=== PATIENT | male | born 1970 | race Caucasian/White ===

== ENCOUNTER → 2017-10-26 | Outpatient (CLI) | payer OTHER ==
[~2017-10-26] MED LIST: ASPIRIN325 PO; CELEBREX 200 M200 M1 PO; COZAAR 25 MG TA25 M1 PO; DOXYCYCLINE 10100 MG PO; ELIQUIS2.5 MG PO; NORVASC5 MG PO; OXYCODONE HCL 55 MG PO; PROTONIX40 M1 PO; SERTRALINE HCL50 MG PO; TRAMADOL 50 MG50 MG PO
== END | disposition home or self-care (01) ==
LOC: M.RAD 12:50
DX: M25.552 Pain in left hip (principal)

== ENCOUNTER 2018-02-11 08:56 | Inpatient (IN) | payer OTHER ==
[2018-01-25 14:03] LABS: ABSOLUTE BASOPHILS 0.1 thou/uL (0.0-0.2); ABSOLUTE EOSINOPHILS 0.3 thou/uL (0.0-0.7); ABSOLUTE LYMPHOCYTES 2.1 thou/uL (0.8-5.3); ABSOLUTE MONOCYTES 0.6 thou/uL (0.0-1.2); ABSOLUTE NEUTROPHILS 4.5 thou/uL (1.6-8.1); BASOPHILS 0.8 %; EOSINOPHILS 3.5 %; HEMATOCRIT 42.3 % (42.0-52.0); LYMPHOCYTES 28.2 %; MCH 25.9 pg (26.0-34.0); MCHC 33.1 g/dL (28.0-37.0); MONOCYTES 8.3 %; MPV 7.9 fl. (7.2-11.1); NUCLEATED RBCS 0 /100WBC; PLATELET COUNT* 322 thou/uL (150-400); POLYS 59.2 %; RBC 5.42 mil/uL (4.50-6.00); RDW-CV 15.4 % (10.5-14.5); WBC 7.6 thou/uL (4.0-11.0)
[2018-01-25 14:11] LABS: CALCIUM 9.3 mg/dL (8.5-10.1); CREATININE 0.8 mg/dL (0.6-1.3); POTASSIUM 3.8 mmol/L (3.5-5.1)
[2018-01-25 14:13] LABS: APTT 26.8 Seconds (25.0-31.3); PROTIME 10.1 Seconds (9.20-11.50)
[2018-01-25 14:16] LABS: ALBUMIN 3.5 g/dL (3.4-5.0); TOTAL BILIRUBIN 0.2 mg/dL (<0.1-1.0); TOTAL PROTEIN 8.3 g/dL (6.4-8.2)
[2018-01-25 15:00] LABS: ESR (SEDRATE) 15 mm/hr (0-15)
--- NOTE | 2018-01-25 18:14 | EKG ---
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
[2018-01-25 22:08] LABS: GLYCOHEMOGLOBIN (HGB A1C) 6.7 % (4.8-5.6)
[~2018-02-11] VITALS: Ht 175.3 cm; Wt 117.9 kg
[~2018-02-11 08:56] MED LIST changes: -ASPIRIN325 PO; -DOXYCYCLINE 10100 MG PO; -ELIQUIS2.5 MG PO; -OXYCODONE HCL 55 MG PO
[2018-02-11 10:51] VITALS: BP 127/76
--- NOTE | 2018-02-11 17:11 | NUR ---
PT ADMITTED TO UNIT AFTER LT TOTAL HIP ARTHROPLASTY. PT IS ALERT AND ORIENTED. PT IS DROWSY. NASAL CANNULA AT 3 LITERS, PT HAS CPAP WELL, WEARS AT NIGHT FOR SLEEP APNEA. PULSES 2+ IN ALL EXTREMITIES, 1+ IN LEFT FOOT. PT HAS INCISION TO LT HIP, COVERED WITH MEPILEX, DRY AND INTACT. PT HAS PAIN IN LT LEG, DEFERRRED TO KNEE. ICE ON KNEE. IV MORPHINE GIVEN AND ZOFRAN GIVEN FOR NAUSEA. PT STATES THEY HELPED. PT HAS LINDA HOSE ON BILAT, SCD CALVES BILAT. CPAP IN ROOM FROM HOME. PT IS WBAT AND UP WITH ASSIST X1 WITH WLAKER AND GAIT BELT. REGULAR DIET. BED ALARM ON. WILL CONTINUE TO MONITOR.
--- NOTE | 2018-02-11 18:26 | NUR ---
REVIEWED AND AGREE WITH ALL CHARTING AND ASSESSMENTS COMPLETED BY ANJUM Mabry RN.
[2018-02-11 19:50] VITALS: BP 111/73
[2018-02-11 23:55] VITALS: BP 98/55
[2018-02-12 04:01] VITALS: BP 111/67
[2018-02-12 04:22] LABS: HEMATOCRIT 37.3 % (42.0-52.0); HEMOGLOBIN 11.9 gm/dL (14.0-18.0)
--- NOTE | 2018-02-12 04:47 | NUR ---
PATIENT HAS REMAINED ALERT AND ORIENTED X 4 THROUGHOUT THE SHIFT AND RESTING AT INTERVALS ON HOURLY ROUNDS. MOVED SELF IN BED INCLUDING TURN TO RIGHT SIDE. EARLY AM ASSISTED TO CHAIR AT BEDSIDE DUE TO BACK PAIN FROM MATTRESS. TRANSFER WITH MIN ASSIST OUT OF BED, CGA WALKER, GAIT BELT. MEDICATED X 3 FOR PAIN OF THIS WRITING TO SOME GOOD EFFECT. DRESSING LEFT HIP CLEAN AND DRY. ICE PACK PROVIDED. O2 3L/MIN. VITAL SIGNS STABLE. HAS KICKED OFF FOOT PUMPS MULTIPLE TIMES TONIGHT. ENCOURAGED USE. VOIDS PER URINAL. DENIES NAUSEA WITH ORAL INTAKE. CONTINUE TO MONITOR.
--- NOTE | 2018-02-12 07:49 | NUR ---
PATIENT TRANSFERED TO [facility] ROOM 112 BY BED WITH ALL BELONGINGS IN STABLE CONDITION @ 0315. REPORT TO ANJUM BISHOP.
[2018-02-12 08:29] VITALS: BP 107/52
[2018-02-12 08:42] VITALS: BP 107/52
[2018-02-12] MEDS ORDERED: OXYCODONE HCL 55 MG PO (11:21)
[2018-02-12 11:26] VITALS: BP 107/52
[2018-02-12] MEDS ORDERED: ELIQUIS2.5 MG PO (14:55)
[2018-02-12] MEDS ORDERED: ASPIRIN325 PO (14:58)
[2018-02-12 15:34] VITALS: BP 107/52
--- NOTE | 2018-02-12 15:38 | NUR ---
PT.TO DISCHARGE TODAY. OK FOR HOME BY PHYSICAL THERAPIST. PT.NEEDS A FWW. CM CALLED AND GOT FWW APPROVED BY [employer]. FAXED HER ORDER AND FACE SHEET. THERAPY TO DISPENSE WALKER PRIR TO DISCHARGE. PT.LIVES WITH AND CHILDREN. SHE WILL BE ABLE TO ASSIST HIM AT DISCHARGE. PT.IS NORMALLY INDEPENDENT. 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 CALLED IN RICH TO HIS PHARMACY [facility]. COPAY IS $48. HE SAID HE CAN AFFORD THAT. PT.TO HOME WITH SELF CARE. NO THERAPY ORDERED.
--- NOTE | 2018-02-12 16:11 | NUR ---
PT GIVEN DISHCARGE PACKET AT THIS TIME. PRESCRIPTIONS GIVEN TO PT. HOURLY RUNDING COMPLETED. PT DENIED ANY FURTHER QUESTIONS OR CONCERNS AT THIS TIME. PT LEFT WITH SPOUSE AND FAMILY VIA WHEELCHAIR TO HOME CARE.
[2018-02-12 16:25] VITALS: BP 107/52
--- NOTE | 2018-03-06 07:47 | OP ---
[address] [address] OPERATIVE REPORT Name: ESTHELA PRIETO Room: [address] M.R.#: [id number] Admission: 02/11/18 Attend Phys: Selwyn Devi Discharge: 02/12/18 Date of : 74 Report #: [id number] THIS REPORT FOR: //name// CC: Tobias Gonzalez DATE OF SERVICE: 02/11/2018 PREOPERATIVE DIAGNOSIS: Advanced degenerative joint disease, left hip. POSTOPERATIVE DIAGNOSIS: Advanced degenerative joint disease, left hip. PROCEDURE: Left total hip arthroplasty. SURGEON: Tobias Henning DO. THRESHER BROOMCORN: Dr. Erazo. ESTIMATED BLOOD LOSS: 400 mL. COMPLICATIONS: None. DRAINS: None. SPECIMEN REMOVED: None. ANESTHESIA: General. ORTHOPEDIC IMPLANTS: Biomet total hip arthroplasty system. 1. Size 15 standard offset Taperloc femoral stem. 2. Size 56 G7 acetabular shell with a 25 mm acetabular screw x 2. 3. A 40 mm E1 high wall polyethylene liner. 4. A 40 mm ceramic head with -3 neck length adaptor. CONDITION: The patient is stable to PACU. INDICATIONS FOR PROCEDURE: The patient is a very pleasant 47-year-old male seen in my clinic regarding left hip pain that he has had for quite some time. He has unfortunately failed conservative treatment including anti-inflammatory medications, steroid injections. X-rays were consistent with significant arthritic changes with near complete obliteration of the hip joint spaces. Due to failed conservative treatment, he states this pain was interfering with quality of life and activities of daily living. I discussed potential benefit of a left total hip arthroplasty. I discussed procedure, risks, benefits, complications and indications in detail with him. Risks discussed include but [address] [address] OPERATIVE REPORT Name: ESTHELA PRIETO Room: [address] IN [facility].#: [id number] Admission: 02/11/18 Attend Phys: Selwyn Devi Discharge: 02/12/18 Date of : 74 Report #: [id number] not limited to infection, neurovascular injury, continued or worsened pain, need for further surgery, DVT, PE and anesthesia complications, leg length discrepancy as well as hip dislocation and fracture. He did express understanding and wished to proceed with surgery. DESCRIPTION OF PROCEDURE: After consent was obtained, the patient was taken to the operative suite and placed in the supine position on the operating table. He was given the benefit of general anesthesia. All bony prominences were well padded. Both feet were placed in well-padded traction boots. The left hip was then sterilely prepped and draped in usual fashion. Preop timeout was obtained to confirm the correct patient, procedure and operative site. Surgery began with a standard anterior hip incision approximately 10 cm in length. Sharp dissection was taken down to the level of tensor fascia. A new knife was used and an incision was made in the tensor fascia in line with the skin incision. The underlying tensor fascia muscle was reflected off of the fascia and the interval between sartorius and tensor fascia was encountered. Deeper dissection exposed the circumflex vessels. These were isolated, pretreated with Aquamantys and then ligated with electrocautery. Deeper fascial dissection exposed the indirect head of the rectus. This was reflected off the anterior hip capsule with a Escoto elevator as well as electrocautery. Anterior hip fat pad was excised. Once the capsule was isolated #6 retractor placed inferiorly followed by #7 retractor superiorly on the femoral saddle. A #9 retractor was placed anteriorly under the indirect head of the rectus. The capsule was pretreated with Aquamantys and an anterior capsulectomy was performed. He had a large effusion, which was normal in appearance. He had severely eburnated bone with osteophytes throughout the femoral head and back. At this time, a femoral neck cut was made approximately 1 fingerbreadth above the lesser trochanter. Femoral head and neck removed and thoroughly inspected again consistent with end-stage degenerative joint disease. The acetabulum was then isolated. Then, sequential reaming was performed progressing up to a size 55. This gave us a good fit and fill of the acetabulum. Final reaming and final implant placement was done under C-arm visualization. We had good punctate bleeding throughout the acetabulum with a size 55 reamer. The final size 56 G7 limited hole acetabular shell was then impacted into place. It has had good solid fit. Two acetabular screws, both 25 mm in length were placed, both had good purchase. Once confirmed again be in good position on x-ray, both inclination and version, the manhole cover was placed followed by a high wall 40 mm E1 polyethylene liner. This was impacted into place and locked in place. Attention was then turned to the proximal femur. The hip was gradually externally rotated, extended and abducted while posterior releases were performed. A #5 and #8 retractor were placed. A femoral hook was used to bring the proximal femur up into the wound. This gave us good exposure. Sequential broaching was then performed after box osteotome and rat tail rasp were utilized. This progressed up to size 15. This gives a good fit and fill of the proximal femur. Trial reduction was performed with a -3 neck length. The [address] [place] [address] OPERATIVE REPORT Name: ESTHELA PRIETO Room: [address] ..#: [id number] Admission: 02/11/18 Attend Phys: Selwyn Devi Discharge: 02/12/18 Date of : 74 Report #: [id number] was reduced, taken through range of motion. There was no dislocation or subluxation noted. This gave us good leg lengths, which were measured on x-ray at this time. The hip was again dislocated. The final size 15 standard offset Taperloc femoral stem was then impacted into place. Again, this gave us a good fit and fill of the proximal femur. It was a nice solid fit. A trial reduction was again performed and -3 neck length was chosen. The final minus neck -3 neck length 40 mm ceramic head was impacted on a clean trunnion. The hip was reduced. This was with a good reduction maneuver and the hip was taken through range of motion. There was no subluxation or dislocation noted at extremes of all motions. Final pictures were taken, both AP and lateral views, noting good position of all hardware and equal leg lengths. There were no any acute intraoperative complications noted on the x-ray. The hip was then thoroughly irrigated with sterile saline. Ortho cocktail was injected. Tensor fascia was reapproximated with #1 Vicryl in [id number] fashion. Subcutaneous tissue closed with 2-0 Vicryl in inverted interrupted fashion followed by a running Monocryl stitch on the skin. This covered with Dermabond, was allowed to dry, Mepilex silver dressing, 4 x 4s, ABD pads and Medipore tape. He did tolerate the procedure without complications. He was taken to recovery in stable condition. All needle and sponge counts correct x 2 at the end of the procedure. <ELECTRONICALLY SIGNED> By: Imer Sullivan DO 03/06/18 0747 1557 [id number] Irish Henning DO /nt
== END 2018-02-12 16:30 | disposition home or self-care (01) | DRG 470 ==
LOC: M.SUR 08:56 → M.3W 14:43 → M.ORTHSURG 14:43 → M.TBA 14:43 → M.3W 16:01 → M.ORTHSURG 02-12 07:20
PROVIDERS: Orthopaedic Surgery; ADMIT Internal Medicine
PROC: 0SRB02A Replacement of Left Hip Joint with Metal on Polyethylene Synthetic Substitute, Uncemented, Open Approach (ICD-10-PCS; principal; 2018-02-11)
DX: M16.12 Unilateral primary osteoarthritis, left hip (principal); D62 Acute posthemorrhagic anemia; J98.11 Atelectasis; I10 Essential (primary) hypertension; K21.9 Gastro-esophageal reflux disease without esophagitis; Z96.1 Presence of intraocular lens; Z98.42 Cataract extraction status, left eye; Z98.41 Cataract extraction status, right eye; Z28.21 Immunization not carried out because of patient refusal; Z79.82 Long term (current) use of aspirin; Z79.899 Other long term (current) drug therapy

== ENCOUNTER 2018-02-16 18:50 | Emergency (ER) | payer OTHER ==
[~2018-02-16] VITALS: Ht 175.3 cm; Wt 117.9 kg
[~2018-02-16 18:50] MED LIST changes: +ASPIRIN325 PO; +ELIQUIS2.5 MG PO; +OXYCODONE HCL 55 MG PO
[2018-02-16 19:53] LABS: ABSOLUTE EOSINOPHILS 0.3 thou/uL (0.0-0.7); ABSOLUTE LYMPHOCYTES 1.9 thou/uL (0.8-5.3); ABSOLUTE MONOCYTES 0.7 thou/uL (0.0-1.2); ABSOLUTE NEUTROPHILS 4.2 thou/uL (1.6-8.1); BASOPHILS 0.6 %; EOSINOPHILS 3.6 %; HEMATOCRIT 30.7 % (42.0-52.0); LYMPHOCYTES 27.1 %; MCH 25.5 pg (26.0-34.0); MCHC 32.6 g/dL (28.0-37.0); MCV 78.3 fL (80.0-100.0); MONOCYTES 9.4 %; MPV 7.3 fl. (7.2-11.1); NUCLEATED RBCS 0 /100WBC; PLATELET COUNT* 423 thou/uL (150-400); POLYS 59.3 %; RBC 3.92 mil/uL (4.50-6.00); RDW-CV 14.5 % (10.5-14.5); WBC 7.1 thou/uL (4.0-11.0)
[2018-02-16 20:06] LABS: APTT 26.1 Seconds (25.0-31.3); PROTIME 10.1 Seconds (9.20-11.50)
[2018-02-16 20:18] LABS: CREATININE 0.7 mg/dL (0.6-1.3); POTASSIUM 3.8 mmol/L (3.5-5.1)
[2018-02-16 20:22] LABS: ALBUMIN 2.8 g/dL (3.4-5.0); TOTAL BILIRUBIN 0.3 mg/dL (<0.1-1.0); TOTAL PROTEIN 7.5 g/dL (6.4-8.2)
[2018-02-16 21:13] LABS: ESR (SEDRATE) 95 mm/hr (0-15)
[2018-02-16] MEDS ORDERED: DOXYCYCLINE 10100 MG PO (21:27)
[2018-02-16 21:43] VITALS: BP 130/72
== END 2018-02-16 21:47 | disposition home or self-care (01) ==
LOC: M.ERS 18:50
PROVIDERS: Nurse Practitioner Family
DX: L03.116 Cellulitis of left lower limb (principal); I10 Essential (primary) hypertension; K21.9 Gastro-esophageal reflux disease without esophagitis

== ENCOUNTER → 2018-03-12 | Outpatient (CLI) | payer OTHER ==
[~2018-03-12] MED LIST changes: +DOXYCYCLINE 10100 MG PO
== END ==
LOC: M.LAB 05:03
DX: Z01.812 Encounter for preprocedural laboratory examination (principal)

== ENCOUNTER → 2019-04-08 | Outpatient (CLI) | payer BC | LOC: M.ULTRA 11:30 | DX: M79.604 Pain in right leg (principal); M79.89 Other specified soft tissue disorders ==

== ENCOUNTER 2020-03-01 11:57 | Emergency (ER) | payer OTHER ==
[~2020-03-01] VITALS: Ht 175.3 cm; Wt 122.5 kg
[2020-03-01] MEDS ORDERED: ZPAK PO (14:21)
[2020-03-01] MEDS ORDERED: PROAIR HFA8.5 GM INH (14:28)
[2020-03-01] MEDS ORDERED: PREDNISONE 20 M20 MG PO (14:28)
[2020-03-01] MEDS ORDERED: APAP W/CODEINE1 TA2 PO (14:29)
[2020-03-01] MEDS ORDERED: TESSALON PERLE100 MG PO (14:33)
[2020-03-01 14:47] VITALS: BP 140/90
--- NOTE | 2020-03-02 09:07 | EKG ---
[place] [address] ELECTROCARDIOGRAM REPORT Name: ESTHELA PRIETO Room: [facility]#: [id number] Admission: 03/01/20 Attend Phys: Discharge: 03/01/20 Date of : 74 Date of Service: 03/01/20 1330 Report #: [id number] THIS REPORT FOR: //name// 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1970 Requested By: Phil Mcneal Order Number: [id number] MD: Billy Nguyen Measurements Intervals [place] Rate: 91 P: 14 CT: 158 QRS: -26 QRSD: 108 T: 58 QT: 364 QTc: 448 Interpretive Statements Sinus rhythm Incomplete RBBB and LAFB Compared to ECG 01/25/2018 14:03:18 Left anterior fascicular block now present Incomplete right bundle-branch block now present Right bundle-branch block now present Intraventricular conduction delay no longer present Electronically Signed On 03-02-2020 9:07:30 BOXING INSPECTOR by Billy Nguyen [email or web address] <ELECTRONICALLY SIGNED> By: Jeremy Nguyen MD, FACC 03/02/20 0907 133 1330 Jeremy Nguyen MD, FACC /EPI
== END 2020-03-01 14:48 | disposition home or self-care (01) ==
LOC: M.ERS 11:57
DX: U07.1 COVID-19 (principal); J12.89 Other viral pneumonia; I10 Essential (primary) hypertension; K21.9 Gastro-esophageal reflux disease without esophagitis; Z79.899 Other long term (current) drug therapy; Z79.82 Long term (current) use of aspirin